=== PATIENT | female | born 1995 | race Caucasian/White ===

== ENCOUNTER 2017-03-03 19:17 | Emergency (ER) | payer BC ==
[2017-03-03] MEDS ORDERED: Ondansetron INJ* 2 MG/ML VIAL IV ONE (20:03)
[2017-03-03] MEDS ORDERED: Acetaminophen TAB* 325 MG PO ONE (20:03)
[2017-03-03] MEDS: NS 0.9% 1000 ML* 2,000 ML IV ONE (20:32)
[2017-03-03 20:47] LABS: Hematocrit 33 % (35-47); Hemoglobin 10.5 g/dl (12.0-16.0); Mean Corpuscular HGB Conc 32 g/dl (31-36); Mean Corpuscular Hemoglobin 25 pg (27-31); Mean Corpuscular Volume 77 fL (80-97); Mean Platelet Volume 8 um3 (7.4-10.4); Red Blood Count 4.27 10^6/ul (4.0-5.4); Red Cell Distribution Width 15 % (10.5-15); White Blood Count 15.1 10^3/ul (3.5-10.8)
[2017-03-03 20:50] VITALS: BP 133/77
[2017-03-03 20:59] LABS: Albumin 4.3 g/dL (3.2-5.2); BUN/Creatinine Ratio 17.1 (8-20); C Reactive Protein 6.66 mg/L (< 5.00); Calcium 9.1 mg/dL (8.6-10.3); EGFR African American 115.5 (>60); EGFR Non-African American 89.8 (>60); Globulin 2.8 g/dL (2-4); Potassium 3.6 mmol/L (3.5-5.0); Total Bilirubin 0.2 mg/dL (0.2-1.0); Total Protein 7.1 g/dL (6.4-8.9)
--- NOTE | 2017-03-03 21:16 | RAD ---
Indication: Frontal headaches. CT of the brain was performed without IV contrast. Ventricular structures are midline. No midline shift is noted. The extra-axial spaces are unremarkable. There is no evidence of intracranial mass or hemorrhage. No other high or low density lesions are identified. Mastoid air cells and paranasal sinuses are unremarkable. IMPRESSION: No intracranial mass or hemorrhage is noted.
--- NOTE | 2017-03-03 21:19 | RAD ---
Indication: Sinusitis, headaches. CT of the sinuses was obtained in the axial plane. Coronal and sagittal reconstructed images were obtained. Mastoid air cells are well aerated without evidence of air-fluid levels. Sphenoid sinuses are clear. Ethmoid air cells are clear. Maxillary sinuses are clear. The frontal sinuses are also clear. Nasal septal deviation towards the right is noted. There is bilateral araceli bullosa noted. The ostiomeatal units appear patent. No paradoxical turn's of the middle turbinates are noted. IMPRESSION: PARANASAL SINUSES ARE CLEAR. BILATERAL ARACELI BULLOSA WITH NASAL SEPTAL DEVIATION TOWARDS THE RIGHT IS NOTED. THE OSTIOMEATAL UNITS APPEAR PATENT.
[2017-03-03] MEDS ORDERED: Ketorolac INJ* 30 MG/ML 1 ML VIAL IV ONE (21:29)
[2017-03-03] MEDS ORDERED: diPHENhydraMINE IV* 50 MG/ML 1 ml VIAL (BENADRYL) IV ONE (21:29)
--- NOTE | 2017-03-03 22:11 | ED ---
Akhil Fernando Billy, scribed for Ladarius Cherry MD on 03/03/17 at 2016 . Headache - HPI Summary HPI Summary: Patient is a 21 year-old female coming to [facility] for evaluation of the "worst headache of her life." She states that the headache began approximately 2 hours ago. She has a history of headaches, and states that her headache today feels very similar to previous episodes, albeit much worse in severity. The headache is located over the sinuses, frontally, and in the roof of her mouth. Nothing makes it better or worse. She has also had nausea and vomiting. Denies neck pain. In the past, her headaches resolved with ibuprofen, but her headache persisted today. She denies any recent illness. - History Of Current Complaint Chief Complaint: EDHeadache Stated Complaint: SEVERE HEADACHE, VOMITING Time Seen by Provider: 03/03/17 19:54 Hx Obtained From: Patient Onset/Duration: Gradual Onset, Started hours ago Initially Headache Was: "Worst Headache Ever" Timing: Constant Character: Typical Headache Location of Headache: Frontal Aggravating Factor: Nothing Allevating Factors: Nothing Associated Signs And Symptoms: Nausea, Vomiting - Allergies/Home Medications Allergies/Adverse Reactions: Allergies Allergy/AdvReac Type Severity Reaction Status Date / Time Penicillins Allergy Unknown Verified 03/03/17 21:37 Reaction Details PMH/Surg Hx/FS Hx/Imm Hx Endocrine/Hematology History: Denies: Hx Diabetes Cardiovascular History: Denies: Hx Myocardial Infarction Infectious Disease History: Denies: Traveled Outside the [place] in Last 30 Days - Family History Family History: Mother with vestibular headaches. - Social History Alcohol Use: Rare Substance Use Type: Reports: Marijuana Substance Use Comment - Amount & Last Used: yesterday Smoking Status (MU): Never Smoked Tobacco Review of Systems Positive: Vomiting, Nausea Positive: Headache All Other Systems Reviewed And Are Negative: Yes Physical Exam Triage Information Reviewed: Yes Vital Signs On Initial Exam: Initial Vitals Temp Pulse Resp BP Pulse Ox 97 F 86 18 130/81 100 03/03/17 19:37 03/03/17 19:37 03/03/17 19:37 03/03/17 19:37 03/03/17 19:37 Vital Signs Reviewed: Yes Appearance: Positive: Pain Distress - moderate Skin: Positive: Warm, Skin Color Reflects Adequate Perfusion, Dry Head/Face: Positive: Normal Head/Face Inspection Eyes: Positive: EOMI, MARY ELLEN, Conjunctiva Clear. Negative: Conjunctiva Inflammed ENT: Negative: Nasal congestion, Nasal drainage Neck: Positive: Supple, Nontender Respiratory/Lung Sounds: Positive: Clear to Auscultation, Breath Sounds Present Cardiovascular: Positive: RRR Abdomen Description: Positive: Nontender, Soft Bowel Sounds: Positive: Present Musculoskeletal: Positive: Normal, Strength/ROM Intact Neurological: Positive: Normal, Sensory/Motor Intact, Alert, Oriented to Person Place, Time Psychiatric: Positive: Affect/Mood Appropriate - Carla Coma Scale Coma Scale Total: 15 Diagnostics - Vital Signs Vital Signs Temp Pulse Resp BP Pulse Ox 03/03/17 19:54 89 98 03/03/17 19:37 97 F 86 18 130/81 100 - Laboratory Lab Results: Lab Results 03/03/17 03/03/17 03/03/17 Range/Units 20:30 20:30 20:30 WBC 15.1 H (3.5-10.8) 10^3/ul RBC 4.27 (4.0-5.4) 10^6/ul Hgb 10.5 L (12.0-16.0) g/dl Hct 33 L (35-47) % MCV 77 L (80-97) fL MCH 25 L (27-31) pg MCHC 32 (31-36) g/dl RDW 15 (10.5-15) % Plt Count 338 (150-450) 10^3/ul MPV 8 (7.4-10.4) um3 Neut % (Auto) 83.7 H (38-83) % Lymph % (Auto) 11.8 L (25-47) % Cecil % (Auto) 3.9 (1-9) % Eos % (Auto) 0.2 (0-6) % Baso % (Auto) 0.4 (0-2) % Absolute Neuts (auto) 12.6 H (1.5-7.7) 10^3/ul Absolute Lymphs (auto) 1.8 (1.0-4.8) 10^3/ul Absolute Monos (auto) 0.6 (0-0.8) 10^3/ul Absolute Eos (auto) 0 (0-0.6) 10^3/ul Absolute Basos (auto) 0.1 (0-0.2) 10^3/ul Absolute Nucleated RBC 0 10^3/ul Nucleated RBC % 0 INR (Anticoag Therapy) 1.04 (0.89-1.11) APTT 23.8 L (26.0-36.3) seconds Sodium 137 (133-145) mmol/L Potassium 3.6 (3.5-5.0) mmol/L Chloride 104 (101-111) mmol/L Carbon Dioxide 27 (22-32) mmol/L Anion Gap 6 (2-11) mmol/L BUN 14 (6-24) mg/dL Creatinine 0.82 (0.51-0.95) mg/dL Est GFR ( Amer) 115.5 (>60) Est GFR (Non-Af Amer) 89.8 (>60) BUN/Creatinine Ratio 17.1 (8-20) Glucose 106 H (70-100) mg/dL Calcium 9.1 (8.6-10.3) mg/dL Total Bilirubin 0.20 (0.2-1.0) mg/dL AST 18 (13-39) U/L ALT 16 (7-52) U/L Alkaline Phosphatase 52 (34-104) U/L C-Reactive Protein 6.66 H (< 5.00) mg/L Total Protein 7.1 (6.4-8.9) g/dL Albumin 4.3 (3.2-5.2) g/dL Globulin 2.8 (2-4) g/dL Albumin/Globulin Ratio 1.5 (1-3) Beta HCG, Quant 0.77 mIU/mL Result Diagrams: 03/03/17 20:30 03/03/17 20:30 Lab Statement: Any lab studies that have been ordered have been reviewed, and results considered in the medical decision making process. - CT Brain CT Interpretation: No Acute Changes CT Interpretation Completed By: Radiologist Sinus CT Interpretation Completed By: Radiologist - PARANASAL SINUSES ARE CLEAR. BILATERAL ARACELI BULLOSA WITH NASAL SEPTAL DEVIATION TOWARDS THE RIGHT IS NOTED. THE OSTIOMEATAL UNITS APPEAR PATENT. Re-Evaluation - Re-Evaluation First Eval Re-Evaluation Time: 21:48 Change: Unchanged Comment: Imaging reviewed. Headache Course/Dx - Course Course Of Treatment: NO CRITICAL CARE TIME Assessment/Plan: DISPOSITION PENDING AT SHIFT CHANGE. DISCUSSED CT/LAB RESULTS. THIS HEADACHE IS A RECURRENT PALUMBO IN THE SAME LOCATION AND CHARACTER PRIOR HEADACHES WITHOUT SIGNS OF INFECTION. THE LOCATION IS SINUS. THERE ARE ARACELI BULLOSA ON CT WHICH MAY BE CAUSING SINUS OBSTRUCTION AND PAIN. STABLE IN ED. F/ U WILL BE WITH NEUROLOGY AND ENT. - Diagnoses Provider Diagnoses: Headache Discharge - Discharge Plan Condition: Stable Disposition: HOME Patient Education Materials: General Headache (ED) Forms: *School Release Referrals: [facility] [Provider Group] [facility] [Outside] [facility] [Provider Group] Additional Instructions: FOLLOW UP WITH YOUR PRIMARY CARE DOCTOR, NEUROLOGY AND ENT. RETURN TO THE EMERGENCY DEPARTMENT FOR ANY WORSENING OF YOUR CONDITION; WEAKNESS , NUMBNESS, FEVER, PAIN, YOU FEEL ILL OR QUESTIONS OR CONCERNS. The documentation as recorded by the Akhil khanna Billy accurately reflects the service I personally performed and the decisions made by me, Ladarius Cherry MD.
[2017-03-03] MEDS ORDERED: Morphine INJ* 4 MG/ML 1 ML SYRINGE IV ONE (23:03)
[2017-03-03] MEDS ORDERED: HYDROcodone/ACETAMIN 5-325 MG* 1 TAB PO ONE (23:04)
[2017-03-03] MEDS ORDERED: Ondansetron ODT TAB* 4 MG SL ONE (23:04)
== END 2017-03-03 23:51 | disposition home or self-care (01) ==
LOC: ED 19:17
DX: R51 Headache (principal); R11.2 Nausea with vomiting, unspecified
CPT/HCPCS: 36415; 70450; 70486; 80053; 84702; 85025; 85610; 85730; 86140; 96374; 96375; 99283; A9270-GY; J1200; J1885; J2270; J2405

== ENCOUNTER 2017-10-31 07:42 | Emergency (ER) | payer BC ==
[2017-10-31] MEDS ORDERED: NS 0.9% 1000 ML* 1,000 ML IV ONE (07:47)
[2017-10-31] MEDS ORDERED: Ondansetron INJ* 2 MG/ML VIAL IV ONE (07:47)
[2017-10-31] MEDS ORDERED: Dexamethasone IV* 4 MG/ML 1 ML (4 MG) IV SLOW PU ONE (07:54)
[2017-10-31 08:36] LABS: Hematocrit 39 % (35-47); Hemoglobin 12.8 g/dl (12.0-16.0); Mean Corpuscular HGB Conc 32 g/dl (31-36); Mean Corpuscular Hemoglobin 24 pg (27-31); Mean Corpuscular Volume 75 fL (80-97); Mean Platelet Volume 9 um3 (7.4-10.4); Red Blood Count 5.27 10^6/ul (4.0-5.4); Red Cell Distribution Width 16 % (10.5-15); White Blood Count 8.4 10^3/ul (3.5-10.8)
[2017-10-31 08:40] LABS: Add Diff/Slide Review? Slide Review Added; Comments Flag Yes
[2017-10-31] MEDS ORDERED: Lidocaine 2% VISCOUS* 15 ML UDC PO ONE (08:42)
[2017-10-31 08:46] LABS: BUN/Creatinine Ratio 9.4 (8-20); Calcium 9.4 mg/dL (8.6-10.3); EGFR African American 109.7 (>60); EGFR Non-African American 85.3 (>60); Globulin 3.3 g/dL (2-4); Potassium 3.7 mmol/L (3.5-5.0); Total Bilirubin 1.6 mg/dL (0.2-1.0); Total Protein 7.3 g/dL (6.4-8.9)
[2017-10-31 09:20] VITALS: BP 135/77
--- NOTE | 2017-10-31 09:23 | ED ---
Wilmer Fernando Gabriel, scribed for Paul Escobedo MD on 10/31/17 at 0754 . Complex/Multi-Sys Presentation - HPI Summary HPI Summary: This patient is a 22 year old F presenting to [facility] with a chief complaint of hematemesis since this morning. The patient rates the pain 6/10 in severity. Patient reports throat pain, GERD, nausea, and vomiting with some blood. Patient denies CP, SOB, melena, and ABD pain. Pt had a mono spot done 4 days ago and it was positive. LNMP 3 weeks ago. Has taken ibuprofen, 1200mg yesterday and denies any alcohol usage. Recently returned from [place]. . - History Of Current Complaint Chief Complaint: EDNauseaVomitDiarrh Time Seen by Provider: 10/31/17 07:47 Hx Obtained From: Patient Onset/Duration: Lasting Days, Still Present Timing: Constant Severity Currently: Mild Severity Initially: Mild - Allergies/Home Medications Allergies/Adverse Reactions: Allergies Allergy/AdvReac Type Severity Reaction Status Date / Time Penicillins Allergy Unknown Verified 10/31/17 07:45 Reaction Details PMH/Surg Hx/FS Hx/Imm Hx Previously Healthy: No Endocrine/Hematology History: Denies: Hx Diabetes Cardiovascular History: Denies: Hx Myocardial Infarction Neurological History: Denies: Hx Dementia Infectious Disease History: No Infectious Disease History: Reports: Traveled Outside the [place] in Last 30 Days - Family History Known Family History: Negative: Hypertension Family History: Mother with vestibular headaches. - Social History Alcohol Use: Rare Substance Use Type: Reports: Marijuana Substance Use Comment - Amount & Last Used: yesterday Smoking Status (MU): Never Smoked Tobacco Review of Systems Positive: Other - throat pain Negative: Chest Pain Negative: Shortness Of Breath Gastrointestinal: Negative - melena Positive: Vomiting - with blood , Nausea, Other - GERD . Negative: Abdominal Pain All Other Systems Reviewed And Are Negative: Yes Physical Exam - Summary Physical Exam Summary: Appearance: Well appearing, no pain distress Skin: warm, dry, reflects adequate perfusion Head/face: normal Eyes: EOMI, MARY ELLEN ENT: enlarged exudative of tonsils Neck: supple, non-tender Respiratory: CTA, breath sounds present Cardiovascular: tachycardia, pulses symmetrical Abdomen: Lower abdominal tenderness, soft Bowel: present Musculoskeletal: normal, strength/ROM intact Neuro: normal, sensory motor intact, A&Ox Triage Information Reviewed: Yes Vital Signs On Initial Exam: Initial Vitals Temp Pulse Resp BP Pulse Ox 96.7 F 96 18 146/102 97 10/31/17 07:42 10/31/17 07:42 10/31/17 07:42 10/31/17 07:42 10/31/17 07:42 Vital Signs Reviewed: Yes Diagnostics - Vital Signs Vital Signs Temp Pulse Resp BP Pulse Ox 10/31/17 07:42 96.7 F 96 18 146/102 97 - Laboratory Lab Results: Lab Results 10/31/17 10/31/17 Range/Units 08:07 08:07 WBC 8.4 (3.5-10.8) 10^3/ul RBC 5.27 (4.0-5.4) 10^6/ul Hgb 12.8 (12.0-16.0) g/dl Hct 39 (35-47) % MCV 75 L (80-97) fL MCH 24 L (27-31) pg MCHC 32 (31-36) g/dl RDW 16 H (10.5-15) % Plt Count 168 (150-450) 10^3/ul MPV 9 (7.4-10.4) um3 Neut % (Auto) 31.1 L (38-83) % Lymph % (Auto) 58.3 H (25-47) % [place] % (Auto) 10.3 H (1-9) % Eos % (Auto) 0 (0-6) % Baso % (Auto) 0.3 (0-2) % Absolute Neuts (auto) 2.6 (1.5-7.7) 10^3/ul Absolute Lymphs (auto) 4.9 H (1.0-4.8) 10^3/ul Absolute Monos (auto) 0.9 H (0-0.8) 10^3/ul Absolute Eos (auto) 0 (0-0.6) 10^3/ul Absolute Basos (auto) 0 (0-0.2) 10^3/ul Absolute Nucleated RBC 0.03 10^3/ul Nucleated RBC % 0.4 Sodium 137 (133-145) mmol/L Potassium 3.7 (3.5-5.0) mmol/L Chloride 105 (101-111) mmol/L Carbon Dioxide 24 (22-32) mmol/L Anion Gap 8 (2-11) mmol/L BUN 8 (6-24) mg/dL Creatinine 0.85 (0.51-0.95) mg/dL Est GFR ( Amer) 109.7 (>60) Est GFR (Non-Af Amer) 85.3 (>60) BUN/Creatinine Ratio 9.4 (8-20) Glucose 97 (70-100) mg/dL Calcium 9.4 (8.6-10.3) mg/dL Total Bilirubin 1.60 H (0.2-1.0) mg/dL AST 150 H (13-39) U/L ALT 185 H (7-52) U/L Alkaline Phosphatase 135 H (34-104) U/L Total Protein 7.3 (6.4-8.9) g/dL Albumin 4.0 (3.2-5.2) g/dL Globulin 3.3 (2-4) g/dL Albumin/Globulin Ratio 1.2 (1-3) Result Diagrams: 10/31/17 08:07 10/31/17 08:07 Lab Statement: Any lab studies that have been ordered have been reviewed, and results considered in the medical decision making process. Re-Evaluation - Re-Evaluation First Eval Change: Improved - pt feeling much better with IVF, meds. D/C with similar. Complex Multi-Symp Course/Dx Course Of Treatment: Pt with known mono -- now with NSAID, Zpak induced gastritis causing upper GI bleed. No further bleeding here. IV protonix, oral pepcid etc. IV steroid for the pharyngitis. Pt instructed in what to avoid. D/C with f.u PMD. - Diagnoses Provider Diagnoses: Gastritis, Upper GI bleed, Infectious mononucleosis Discharge - Discharge Plan Condition: Improved Disposition: HOME Prescriptions: Famotidine TAB* [Pepcid 20 MG TAB*] 20 mg PO BID #10 tab Lidocaine 2% VISCOUS* 10 ml MT Q4H PRN #1 btl PRN Reason: Pain Ondansetron [Zofran 4 MG Odt] 4 mg PO TID PRN #10 tab PRN Reason: Nausea Pantoprazole TAB (NF) [Protonix TAB (NF)] 40 mg PO DAILY #14 tab Sucralfate [Carafate] 1 gm PO QID #40 tab Patient Education Materials: Gastritis (ED), Gastrointestinal Bleeding (ED), Mononucleosis (ED) Referrals: Micaela Zuñiga FOOD PRODUCTION MANAGER [Primary Care Provider] - Additional Instructions: Return with persistent bleeding. Strictly avoid ibuprofen/like medications, alcohol, acidic foods and coffee. Return if worse, new symptoms, worse or other concerns as discussed. The documentation as recorded by the Wilmer khanna Gabriel accurately reflects the service I personally performed and the decisions made by , Paul Escobedo MD.
== END 2017-10-31 09:18 | disposition home or self-care (01) ==
LOC: ED 07:42
DX: K29.70 Gastritis, unspecified, without bleeding (principal); K92.2 Gastrointestinal hemorrhage, unspecified; B27.90 Infectious mononucleosis, unspecified without complication; K21.9 Gastro-esophageal reflux disease without esophagitis; Z88.0 Allergy status to penicillin
CPT/HCPCS: 36415; 80053; 85025; 96360; 96374; 96375; 99282; J1100; J2405

== ENCOUNTER 2018-11-05 14:20 | Emergency (ER) | payer BC ==
[2018-11-05 15:53] VITALS: BP 149/97
--- NOTE | 2018-11-05 16:01 | UC ---
Respiratory Complaint HPI - HPI Summary HPI Summary: 23 yo female presents with cough and chest congestion for the last 2 weeks. Cough started as a dry cough, but over the last 3-4 days has been producing yellow sputum. She feels more fatigued recently. She is going to [place] next week and is traveling with a friend who is immunocompromised and does not want to get her sick. She has not been taking anything OTC for her symptoms. Denies fever, chills, sinus symptoms, SOB, chest pain. - History of Current Complaint Chief Complaint: UCRespiratory Stated Complaint: COUGH Time Seen by Provider: 11/05/18 16:01 Hx Obtained From: Patient Hx Last Menstrual Period: one week ago Onset/Duration: Gradual Onset Severity Currently: None Pain Intensity: 0 Pain Scale Used: 0-10 Numeric Character: Cough: Productive - Allergies/Home Medications Allergies/Adverse Reactions: Allergies Allergy/AdvReac Type Severity Reaction Status Date / Time Penicillins Allergy Hives Verified 11/05/18 15:53 PMH/Surg Hx/FS Hx/Imm Hx - Additional Past Medical History Additional PMH: None - Surgical History Surgical History: None - Family History Known Family History: Negative: Hypertension Family History: Mother with vestibular headaches. - Social History Occupation: Student Lives: With Family Alcohol Use: Rare Substance Use Type: None Smoking Status (MU): Never Smoked Tobacco Review of Systems All Other Systems Reviewed And Are Negative: Yes Constitutional: Positive: Fatigue Skin: Positive: Negative Eyes: Positive: Negative ENT: Positive: Negative Respiratory: Positive: Cough Cardiovascular: Positive: Negative Gastrointestinal: Positive: Negative Neurovascular: Positive: Negative Neurological: Positive: Negative Psychological: Positive: Negative Physical Exam - Summary Physical Exam Summary: GENERAL: NAD. Obese. SKIN: No rashes, sores, lesions, or open wounds. HEENT: Head: AT/NC Eyes: EOM intact. Conjunctiva clear without inflammation or discharge. Ears: Hearing grossly normal. TMs intact, no bulging, erythema, or edema. Nose: Nasal mucosa pink and moist. NTTP maxillary and frontal sinus. Throat: Posterior oropharynx without exudates, erythema, or tonsillar enlargement. Uvula midline. NECK: Supple. Nontender. No lymphadenopathy. CHEST: Mild wheezing right lung with decreased air movement. No r/r. No accessory muscle use. Breathing comfortably and in no distress. CV: RRR. Without m/r/g. Pulses intact. Cap refill <2seconds NEURO: Alert. PSYCH: Age appropriate behavior. Triage Information Reviewed: Yes Vital Signs: Initial Vital Signs Temp 98.9 F 11/05/18 15:50 Pulse 87 11/05/18 15:50 Resp 18 11/05/18 15:50 BP 149/97 11/05/18 15:50 Pulse Ox 100 11/05/18 15:50 Vital Signs Reviewed: Yes UC Diagnostic Evaluation - Laboratory O2 Sat by Pulse Oximetry: 100 Respiratory Course/Dx - Course Course Of Treatment: CXR: IMPRESSION: NO ACTIVE CARDIOPULMONARY DISEASE. Suspect bronchitis. Given her length of symptoms and that she will be around immunocompromised individuals - will treat with anbx. - Differential Dx/Diagnosis Provider Diagnosis: Bronchitis Discharge - Sign-Out/Discharge Documenting (check all that apply): Patient Departure All imaging exams completed and their final reports reviewed: Yes - Discharge Plan Condition: Stable Disposition: HOME Prescriptions: Azithromycin TAB* [Zithromax TAB (Z-WILLIAMS) 250 mg #6 tabs] 2 tab PO .TODAY, THEN 1 DAILY #1 williams Benzonatate CAP* [Tessalon 100 MG CAP*] 100 mg PO TID PRN #21 cap PRN Reason: Cough Codeine Phosphate/Guaifenesin [Guaifen-Codeine 100-10 mg/5 ml] 5 ml PO BEDTIME PRN #35 ml MDD 5mL PRN Reason: Cough predniSONE TAB* [Deltasone 20 MG TAB*] 40 mg PO DAILY #10 tab Patient Education Materials: Acute Bronchitis (ED) Referrals: Micaela Zuñiga BREAKFAST ATTENDANT [Primary Care Provider] - Additional Instructions: If you develop a fever, shortness of breath, chest pain, new or worsening symptoms - please call your PCP or go to the ED. Your blood pressure was high at todays visit. Please see your primary provider within 4 weeks for recheck and re-evaluation. - Billing Disposition and Condition Condition: STABLE Disposition: Home
== END 2018-11-05 16:48 | disposition home or self-care (01) ==
LOC: UCEAST 14:20
DX: J40 Bronchitis, not specified as acute or chronic (principal); Z88.0 Allergy status to penicillin
CPT/HCPCS: 71046; 99212; G0463

== ENCOUNTER 2019-01-29 00:43 | Emergency (ER) | payer BC ==
[2019-01-29 00:59] VITALS: BP 142/111
--- OUTSIDE RECORDS SUMMARY | 2019-01-29 01:05 | XMS REPORT | Continuity of Care Document ---
:1995 External Reference #:[id number] Author Name Margarita Schaeffer MD Address [address] [place] [address] [place] [address] Care Team Providers Name Role Phone Berto Hamm MD Care Team Information Scaling Machine Operator Unavailable Berto Hamm MD Primary Care Physician Unavailable Payers Date Identification Numbers Payment Provider Subscriber Policy Number: [id number] Of KAROLYN Minerva Hector PayID: [id number] [address] [address] [place] [address] Advance Directives Description No Information Available Problems Description No Information Family History Description No Information Available Social History Type Date Description Comments Sex Unknown Tobacco Use Start: Unknown Patient has never smoked Smoking Status Reviewed: 01/20/19 Patient has never smoked Allergies, Adverse Reactions, Alerts Date Description Reaction Status Severity Comments 01/20/2019 Penicillins other Active Severe Medications Medication Date Status Form Strength Qnty SIG Indications Ordering Provider Omeprazole / Active Capsules 40mg Take [address] Capsule By Mouth Two Times Daily Nuvaring 00// Active Ring 0.12-0.015 Insert 1 Unknown 0000 mg/24HR Ring Vaginally Every Month Rizatriptan / Active Tablets 10mg Place Under Unknown Benzoate 0000 Dispers Tongue And Let Dissolve, May Repeat In 2 Hours. Immunizations Description No Information Available Vital Signs Date Vital Result Comment 01/20/2019 3:47pm Height 71 inches 5'11" Weight 263.00 lb BP Systolic 139 mmHg BP Diastolic 91 mmHg Heart Rate 76 /min BMI (Body Mass Index) 36.7 kg/m2 Results Test Date Facility Test Result H/L Range Note Laboratory test finding 12/31/2018 N2N/CCD Import Alt 12 U/L Ast 16 U/L BUN/creatinine ratio 12.5 CRP high sensitivity 20.47 mg/L High Co2 carbon dioxide 24 mmol/L TSH (thyroid stimulating horm) 2.58 mciu/mL abs basophils 0 10_3/uL abs eosinophils 0.1 10_3/uL abs lymphocytes 2.7 10_3/uL abs monocytes 0.4 10_3/uL abs neutrophils 3.7 10_3/uL abs nucleated RBC 0 10_3/uL albumin 4.0 g/dL albumin/globulin ratio 1.4 alkaline phosphatase 60 U/L anion gap 9 mmol/L basophil % 0.7 % blood urea nitrogen 8 mg/dL calcium 9.3 mg/dL chloride 106 mmol/L creatinine 0.64 mg/dL eGFR 141.7 eGFR non- 117.1 eosinophil % 1.0 % erythrocyte sed rate 21 mm/HR High free T4 0.87 ng/dL globulin 2.9 g/dL glucose 84 mg/dL granulocyte % 53.6 % hematocrit 41 % hemoglobin 13.3 g/dL lymphocyte % 38.6 % mean corpuscular HGB conc 33 g/dL mean corpuscular hemoglobin 26 pg Low mean corpuscular volume 80 fL mean platelet volume 8.8 fL monocyte % 6.1 % nucleated red blood cells % 0 platelet count 320 10_3/uL potassium 4.2 mmol/L red blood count 5.11 10_6/uL red cell distribution width 14 % sodium 139 mmol/L total bilirubin 0.30 mg/dL total protein 6.9 g/dL vitamin B12 323 pg/mL vitamin D total 25(oh) 27.4 NG/mL white blood count 6.9 10_3/uL Procedures Description No Information Available Encounters Description No Information Available Plan of Treatment Future Appointment(s):01/22/2019 10:15 am - Margarita Schaeffer MD at [facility]01/20/2019 - Margarita Schaeffer MDK21.9 Gastro-esophageal reflux disease without [id number] Nausea with vomiting, [id number] Early [id number] Abnormal weight loss
--- OUTSIDE RECORDS SUMMARY | 2019-01-29 01:05 | XMS REPORT | Continuity of Care Document ---
:1995 External Reference #:[id number] Author Name Margarita Schaeffer MD Address [address] [place] [address] [place] [address] Care Team Providers Name Role Phone Berto Hamm MD Care Team Information Director International Unavailable Berto Hamm MD Primary Care Physician Unavailable Payers Date Identification Numbers Payment Provider Subscriber Policy Number: [id number] Of KAROLYN Mahsa Rothman PayID: [id number] [address] [address] [place] [address] Advance Directives Description No Information Available Problems [...] Form Strength Qnty SIG Indications Ordering Provider Carafate 01/22/ Active Suspension 1GM/10ML 420ml Swallow 10 Margarita 2019 milliliters Foor-Pess every 6-8 in, MD hours Omeprazole / Active Capsules DR 40mg Take 1 Unknown 0000 Capsule By Mouth Two Times Daily Nuvaring / Active Ring 0.12-0.01 Insert 1 Unknown 0000 5mg/24HR Ring Vaginally Every Month Rizatriptan / Active [...] Test Result H/L Range Note Laboratory test 01/22/2019 [facility] Clotest SEE RESULT 1, 2 finding BELOW Laboratory test 01/22/2019 [facility] Surgical SEE RESULT 3, 4 finding Interface Order BELOW Laboratory test 12/31/2018 N2N/CCD Import Alt 12 U/L finding Ast 16 U/L BUN/creatinine ratio 12.5 CRP [...] 27.4 NG/mL white blood count 6.9 10_3/uL 1 [id number] 2 SEE RESULT BELOW Name: MAHSA ROTHMAN DOB: [address]: Margarita Schaeffer MD Acct: [id number] Unit: [id number] AGE: 23 Location: ENDOCEC Re01/22/19 SEX: F Status: DEP REF SPEC: [id number] JOSELIN: 01/22/19-[address]: Margarita Solorzano MD REQ: [id number] RECD: 01/22/19 STATUS: COMP OTHR DR: Micaela Zuñiga AGENCY SALES MANAGEMENT ASSISTANT _ SOURCE: GAS ANTRUM SPDESC: ORDERED: Clotest COMMENTS: [id number] Procedure Result Reported Site Clotest Final 01/23/19- 45 ML Clotest Negative * - [facility] . END OF REPORT DEPARTMENT OF PATHOLOGY, [address] [place] [address] Victor Manuel Burch M.D. Director [facility] # [id number] SEE RESULT BELOW Name: MAHSA ROTHMAN : [address]: Margarita Schaeffer MD Acct: [id number] Unit: [id number] AGE: 23 Location: ENDOCEC Re01/22/19 SEX: F Status: DEP REF SPEC: [id number] JOSELIN: 01/22/19-[address] [facility] [address]: Margarita Solorzano MD REQ: [id number] RECD: 01/22/190954 STATUS: CORINNE MALAGON DR: Berto Zuñiga AGENCY SALES MANAGEMENT ASSISTANT _ ORDERED: LEVEL 4/5 COMMENTS: [id number] FINAL DIAGNOSIS 1. Duodenum, biopsy: -- Benign small intestinal mucosa with no significant pathologic abnormalities. -- No evidence of villous blunting or increased intraepithelial lymphocytes. 2. Duodenum, bulb, biopsy: -- Benign small intestinal mucosa with no significant pathologic abnormalities. -- No evidence of villous blunting or increased intraepithelial lymphocytes. 3. Stomach, biopsy: -- Antral and body-type gastric mucosa with reactive chemical gastropathy. -- No evidence of Helicobacter organisms. 4. Stomach, biopsy: -- Body-type gastric mucosa with minimal superficial chronic gastritis. -- No evidence of Helicobacter organisms. 5. Gastroesophageal junction, biopsy: -- Benign squamous and columnar-type mucosa with chronic inflammation. -- Intestinal metaplasia is absent. -- Dysplasia is absent. CLINICAL HISTORY Weight loss, nausea, gastroesophageal reflux disease, regurgitation CONTINUED ON NEXT PAGE DEPARTMENT OF PATHOLOGY, [address] [place] [address] Victor Manuel Burch M.D. Director [facility] # [id number] RUN DATE: 01/23/19 [facility] LAB LIVE PAGE 2 Patient: MAHSA ROTHMAN [id number] (Continued) POST-OPERATIVE DIAGNOSIS (Continued) POST-OPERATIVE DIAGNOSIS Esophagus - no rings or stricture; irregular z line 38 cm - biopsy; gastroesophageal junction at 39 cm; gastric erosions antrum (tiny); several long linear biopsy ; erosions in body; duodenal bulb erosion and proximal duodenum with bumpy unknown; biopsy ; FRIDA test GROSS DESCRIPTION 1. The specimen is received in formalin labeled, Biopsy Duodenum, and consists of a 0.9 x 0.6 by up to 0.2 cm aggregate of freeman-pink irregular soft tissue fragments which is submitted entirely in one cassette. 2. The specimen is received in formalin labeled, Biopsy Duodenum Bulb, and consists of a 0.7 x 0.5 x 0.1 cm aggregate of freeman-pink irregular soft tissue fragments which is submitted entirely in one cassette. 3. The specimen is received in formalin labeled, Biopsy Gastric Erosion, and consists of two freeman-pink irregular soft tissue fragments measuring 0.3 x 0.2 x 0.1 cm and 0.7 by up to 0.2 x 0.1 cm which are submitted entirely in one cassette. 4. The specimen is received in formalin labeled, Biopsy Gastric Mucosa, and consists of a 0.6 x 0.5 by up to 0.2 cm aggregate of freeman-pink irregular soft tissue fragments which is submitted entirely in one cassette. 5. The specimen is received in formalin labeled, Biopsy GE Junction, and consists of a 0.7 by up to 0.5 x 0.1 cm aggregate of freeman-pink irregular soft tissue fragments which is submitted entirely in one cassette. Signed by and Reported on: Lesley Morton MD 01/23/19 1239 END OF REPORT DEPARTMENT OF PATHOLOGY, [address] [place] [address] Victor Manuel Burch M.D. Director [facility] # [id number] Procedures Description No Information Available Encounters Description No Information Available Plan of Treatment No Information Available
== END 2019-01-29 02:26 | disposition left against medical advice (07) ==
LOC: ED 00:43
DX: R51 Headache (principal); Z53.21 Procedure and treatment not carried out due to patient leaving prior to being seen by health care provider